=== PATIENT | male | born 1960 | race Caucasian/White ===

== ENCOUNTER → 2024-01-07 06:22 | Day surgery (SDC) | payer MEDICARE, SELFPAY | LOC: GI 06:22 | PROVIDERS: ATTENDING PHYSICIAN Internal Medicine Gastroenterology | DX: Z12.11 Encounter for screening for malignant neoplasm of colon (principal); D12.0 Benign neoplasm of cecum; D12.2 Benign neoplasm of ascending colon; Z86.010 Personal history of colon polyps; K64.8 Other hemorrhoids | CPT/HCPCS: 45385; 45380; 88305 ==

== ENCOUNTER → 2024-01-31 07:03 | Outpatient (REF) | payer MEDICARE, OTHER, SELFPAY ==
[2024-01-31 07:54] LABS: % Basophils 0.5 % (0-2); % Eosinophils 4.1 % (0-6); % Immature Granulocytes 0.4 % (0-0.5); % Lymphocytes 21.9 % (20.5-51.1); % Monocytes 7.6 % (1.7-9.3); % Neutrophils 65.5 % (42.2-75.2); Absolute Eosinophils 0.2 10^3/uL (0-0.7); Absolute Lymphocytes 1.2 10^3/uL (1.2-3.4); Absolute Monocytes 0.4 10^3/uL (0.1-0.6); Absolute Neutrophils 3.7 10^3/uL (1.4-6.5); Hematocrit 45.2 % (39.0-52.0); Hemoglobin 15.9 g/dL (13.0-18.0); Mean Corp Hgb Conc. 35.2 g/dL (33.0-37.0); Mean Corpuscular Hgb 32.9 pg (27.0-31.0); Mean Corpuscular Volume 93.4 fL (80.0-94.0); Mean Platelet Volume 10.6 fL (7.4-10.4); Nucleated Red Blood Cells % 0 % (-); Platelet Count 250 10^3/uL (130-400); Red Blood Cell Count 4.84 10^6/uL (4.70-6.10); Red Cell Dist. Width 11.9 % (11.5-14.5); White Blood Cell Count 5.7 10^3/uL (4.8-10.8)
[2024-01-31 08:29] LABS: ALT (SGPT) 35 U/L (0-50); AST (SGOT) 26 U/L (17-59); Albumin 4.5 g/dl (3.5-5.0); Alkaline Phosphatase 79 U/L (38-126); Blood Urea Nitrogen 20 mg/dl (9-20); Carbon Dioxide 27 mmol/L (22-30); Chloride 102 mmol/L (98-107); Glucose 104 mg/dl (70-99); HDL Cholesterol 81 mg/dl; LDL Cholesterol, Calculated 107 mg/dl; Potassium 4.4 mmol/L (3.5-5.1); Sodium 137 mmol/L (135-145); Total Bilirubin 0.6 mg/dl (0.2-1.3); Total Cholesterol 228 mg/dl (50-199); Triglyceride 200 mg/dl (10-149); Very Low Density Lipoprotein 40 mg/dl (0-30); eGFR > 60.00
[2024-01-31 09:03] LABS: PSA, Total - Screen 1.25 ng/ml (0.0-4.0); TSH Reflex To Free T4 1.68 uIU/ml (0.47-4.68)
== END ==
LOC: REG 07:03
PROVIDERS: ATTENDING PHYSICIAN Registered Nurse
DX: Z12.5 Encounter for screening for malignant neoplasm of prostate (principal); I10 Essential (primary) hypertension; K21.00 Gastro-esophageal reflux disease with esophagitis, without bleeding
CPT/HCPCS: 36415; 80053; 80061; 84443; 85025; G0103

== ENCOUNTER → 2024-07-29 07:08 | Outpatient (REF) | payer MEDICARE, OTHER, SELFPAY ==
[2024-07-29 09:00] LABS: ALT (SGPT) 39 U/L (0-50); AST (SGOT) 29 U/L (17-59); Albumin 4.5 g/dl (3.5-5.0); Alkaline Phosphatase 71 U/L (38-126); Blood Urea Nitrogen 20 mg/dl (9-20); Calcium 9.4 mg/dl (8.4-10.2); Carbon Dioxide 30 mmol/L (22-30); Chloride 102 mmol/L (98-107); Glucose 103 mg/dl (70-99); HDL Cholesterol 81 mg/dl; LDL Cholesterol, Calculated 138 mg/dl; Potassium 4.8 mmol/L (3.5-5.1); Sodium 143 mmol/L (135-145); Total Bilirubin 0.5 mg/dl (0.2-1.3); Total Cholesterol 242 mg/dl (50-199); Total Protein 6.9 g/dl (6.3-8.2); Triglyceride 119 mg/dl (10-149); Very Low Density Lipoprotein 23 mg/dl (0-30); eGFR > 60.00
[2024-07-29 13:39] LABS: Glycohemoglobin (HgbA1c) 5.8 % (4.0-5.6)
[2024-07-31 15:40] LABS: HIV Combo Negative (Negative)
[2024-07-31 19:17] LABS: Hepatitis B Surface Antibody Negative; Hepatitis C Antibody Negative (Negative)
== END ==
LOC: REG 07:08
PROVIDERS: ATTENDING PHYSICIAN Registered Nurse
DX: E78.2 Mixed hyperlipidemia (principal); R73.01 Impaired fasting glucose; Z11.59 Encounter for screening for other viral diseases
CPT/HCPCS: 36415; 80053; 80061; 83036; 86705; 86706; 86803; 87389

== ENCOUNTER → 2024-10-11 10:46 | Outpatient (REF) | payer MEDICARE, OTHER, SELFPAY ==
[2024-10-11 11:28] LABS: % Basophils 0.5 % (0-2); % Eosinophils 2.1 % (0-6); % Immature Granulocytes 0.4 % (0-0.5); % Lymphocytes 19.7 % (20.5-51.1); % Monocytes 7.7 % (1.7-9.3); % Neutrophils 69.6 % (42.2-75.2); Absolute Eosinophils 0.2 10^3/uL (0-0.7); Absolute Lymphocytes 1.6 10^3/uL (1.2-3.4); Absolute Monocytes 0.6 10^3/uL (0.1-0.6); Absolute Neutrophils 5.7 10^3/uL (1.4-6.5); Hematocrit 48.9 % (39.0-52.0); Hemoglobin 16.7 g/dL (13.0-18.0); Mean Corp Hgb Conc. 34.2 g/dL (33.0-37.0); Mean Corpuscular Hgb 32.9 pg (27.0-31.0); Mean Corpuscular Volume 96.3 fL (80.0-94.0); Mean Platelet Volume 10.7 fL (7.4-10.4); Nucleated Red Blood Cells % 0 % (-); Platelet Count 299 10^3/uL (130-400); Red Blood Cell Count 5.08 10^6/uL (4.70-6.10); White Blood Cell Count 8.2 10^3/uL (4.8-10.8)
[2024-10-11 13:20] LABS: ALT (SGPT) 31 U/L (0-50); AST (SGOT) 28 U/L (17-59); Albumin 4.5 g/dl (3.5-5.0); Alkaline Phosphatase 86 U/L (38-126); Blood Urea Nitrogen 19 mg/dl (9-20); Calcium 9.5 mg/dl (8.4-10.2); Carbon Dioxide 28 mmol/L (22-30); Chloride 100 mmol/L (98-107); Glucose 88 mg/dl (70-99); Potassium 4.9 mmol/L (3.5-5.1); Sodium 137 mmol/L (135-145); Total Bilirubin 0.6 mg/dl (0.2-1.3); eGFR > 60.00
== END ==
LOC: REG 10:46
PROVIDERS: ATTENDING PHYSICIAN Nurse Practitioner Adult Health
DX: R10.31 Right lower quadrant pain (principal)
CPT/HCPCS: 36415; 80053; 85025

== ENCOUNTER → 2024-10-12 09:30 | Outpatient (REF) | payer MEDICARE, OTHER, SELFPAY | LOC: RAD 09:30 | PROVIDERS: ATTENDING PHYSICIAN Nurse Practitioner Adult Health | DX: R10.31 Right lower quadrant pain (principal) | CPT/HCPCS: 74177; Q9967 ==

== ENCOUNTER 2024-10-12 15:41 | Day surgery (SDC) | payer MEDICARE, OTHER, SELFPAY ==
[2024-10-12] VITALS (8 sets, daily range): BP systolic 108–141; BP diastolic 56–85
--- NOTE | 2024-10-12 12:21 | ED.GENMED ---
History of Present Illness
General
Chief Complaint: Abdominal Pain
Source: patient
Exam Limitations: none
Time Seen by Provider: 10/12/24 12:14
History of Present Illness
History of Present Illness:
63yoM with a history of hypertension and hyperlipidemia presenting for evaluation of an abnormal outpatient CT scan. Patient started having some vague central abdominal pain 3 days ago which migrated to the right lower quadrant 2 days ago. He was
seen by his PCP yesterday who sent him for an outpatient CAT scan. He completed the CT scan this morning which revealed acute appendicitis and he was sent to the ED. patient's pain is currently a 4/10 in severity. He denies any fevers, chills,
nausea, vomiting, diarrhea, constipation, dysuria.
Past History
Past History
ED Past Medical History: HTN and Hypercholesterolemia
Social History
Tobacco: Non-smoker
Personal:
Living: with family
Employment: Employed
Phy Exam
General Physical Exam
General Presentation: well appearing and no apparent distress
General age: appears stated age
General Skin: warm and dry
General Habitus: normal
General Mental: alert
ENT Exam
ENT Exam: normocephalic
Pulmonary Exam
Pulmonary Exam: no respiratory distress
Gastrointestinal Exam
Gastrointestinal Exam: soft, non distended and other (+Focal tenderness to the RLQ. Abdomen soft, non-distended. No rebound or guarding. )
Neurological Exam
Neurological Exam: alert
Miah Coma Scale
Eye Opening: Spontaneous
Verbal Response: Oriented
Motor Response: Obeys Commands
GCS Total Score: 15
Skin Exam
Skin Exam: normal color and warm/dry
Psychiatric Exam
Psychiatric Exam: normal mood/affect
Course
Orders/Labs/Results
Orders:
Orders
10/12/24 12:14
0.9% Sodium Chloride 1000 ml [Nss] 1,000 ml IV BOLUS
10/12/24 13:25
Complete Blood Count/With Diff Urgent
Comprehensive Metabolic Panel Urgent
Abnormal Lab Results
10/12/24
13:25
MCH 32.7 H pg
(27.0-31.0)
Lymphocytes % 20.0 L %
(20.5-51.1)
Chloride 97 L mmol/L
(98-107)
Albumin 5.1 H g/dl
(3.5-5.0)
10/12/24 13:25
10/12/24 13:25
Vital Signs
Initial and Last Documented VS:
Initial Vital Signs
Temp Pulse Resp BP Pulse Ox
98.8 F 79 17 141/80 99
10/12/24 11:40 10/12/24 11:40 10/12/24 11:40 10/12/24 11:40 10/12/24 11:40
Last Documented Vital Signs
Temp Pulse Resp BP Pulse Ox
98.8 F 79 17 141/80 99
10/12/24 11:40 10/12/24 11:40 10/12/24 11:40 10/12/24 11:40 10/12/24 11:40
MDM/Problems Addressed
Differential Diagnosis Includes:
63yoM presenting after appendicitis was found on an outpatient CT scan this morning. C/o RLQ pain x several days. No f/c. VSS. He is well-appearing in no acute distress. No signs of peritonitis on abdominal exam.
Will establish IV access and obtain labs. General surgeon, Dr. Padilla, notified of patient. Patient admitted for further management. Plan for appendectomy this afternoon.
*Critical Care Note
Total Time (30-74mins, 75-104mins- exclusive of procedures): Not Applicable
ED Attending Note
-
Portions of this chart may have been created with voice recognition software.� Occasional wrong word or��sound alike� substitutions may have occurred due to the inherent limitations of voice recognition software.
Discharge Plan
Departure
Patient Disposition: Admit
Date of Disposition: 10/12/24
Time of Disposition: 12:39
Presentation/result/management discussed w/ accepting MD/DO: Dr. Padilla
Discharge Problem:
Acute appendicitis
Interventions
Interventions:
*Risk Screen - Suicide Last Done: 10/12/24 11:42
*General Assessment Last Done: 10/12/24 11:42
*Neglect/Abuse Screening Last Done: 10/12/24 11:42
*ED COVID-19 Vaccine History Last Done: 10/12/24 11:42
*Nursing Disposition Last Done: 10/12/24 15:37
MW-Icnbme-Acsnmyjjnl Assessment Last Done: 10/12/24 14:03
Discharge Date and Time
Discharge Date/Time: 10/12/24 15:37
[2024-10-12] MEDS: NSS 1000 IV (13:32)
[2024-10-12 13:38] LABS: % Basophils 0.5 % (0-2); % Eosinophils 2.2 % (0-6); % Immature Granulocytes 0.2 % (0-0.5); % Monocytes 6.6 % (1.7-9.3); % Neutrophils 70.5 % (42.2-75.2); Absolute Eosinophils 0.2 10^3/uL (0-0.7); Absolute Lymphocytes 1.6 10^3/uL (1.2-3.4); Absolute Monocytes 0.5 10^3/uL (0.1-0.6); Absolute Neutrophils 5.8 10^3/uL (1.4-6.5); Hematocrit 48.3 % (39.0-52.0); Hemoglobin 16.8 g/dL (13.0-18.0); Mean Corp Hgb Conc. 34.8 g/dL (33.0-37.0); Mean Corpuscular Hgb 32.7 pg (27.0-31.0); Mean Platelet Volume 10.3 fL (7.4-10.4); Nucleated Red Blood Cells % 0 % (-); Platelet Count 285 10^3/uL (130-400); Red Blood Cell Count 5.14 10^6/uL (4.70-6.10); Red Cell Dist. Width 11.8 % (11.5-14.5); White Blood Cell Count 8.2 10^3/uL (4.8-10.8)
[2024-10-12 14:03] LABS: ALT (SGPT) 39 U/L (0-50); AST (SGOT) 36 U/L (17-59); Albumin 5.1 g/dl (3.5-5.0); Alkaline Phosphatase 89 U/L (38-126); Blood Urea Nitrogen 16 mg/dl (9-20); Calcium 9.8 mg/dl (8.4-10.2); Carbon Dioxide 29 mmol/L (22-30); Chloride 97 mmol/L (98-107); Glucose 84 mg/dl (70-99); Potassium 4.6 mmol/L (3.5-5.1); Sodium 137 mmol/L (135-145); Total Bilirubin 0.9 mg/dl (0.2-1.3); Total Protein 7.5 g/dl (6.3-8.2); eGFR > 60.00
--- NOTE | 2024-10-12 16:09 | HP.FOC2 ---
Focused History & Physical
Chief Complaint
HPI:
Chief Complaint: Right lower quadrant abdominal pain
HPI / Indication for Planned Procedure: 63-year-old male who developed the acute onset of abdominal pain this past Wednesday. Periumbilical in nature. Anorexia mild nausea but no vomiting. This pain increased in severity on Wednesday and began
localizing to the right lower quadrant for which he called his PCP. He was seen in evaluation yesterday and referred for an outpatient CT scan that was obtained today. Over the last 24 hours his appetite has returned and he was eating regularly by
yesterday evening for dinner. The severity of his pain significantly improved but he is dry house tender to the touch and with movement localized to the right lower quadrant. No similar episodes like this in the past.
Relevant Past Medical History: Other (Allergies, hypercholesterolemia, hypertension)
Relevant Social History: Negative
Relevant Family History: Negative
Relevant Past Surgical History: Negative (No past abdominal surgical history)
Review of Systems
Review of Pertinent Systems: All Systems Negative
Medication
See Medication form for detailed medications: Yes
Medication List (including Herbals & OTC):
montelukast 10 mg tablet 10 mg PO DAILY 05/31/19
rosuvastatin 40 mg tablet 40 mg PO DAILY 05/31/19
omeprazole 20 mg capsule,delayed release 20 mg PO DAILYPRN PRN heart burn 09/18/19
amlodipine 10 mg-benazepril 20 mg capsule 1 cap PO DAILY 10/12/24
fexofenadine 180 mg tablet 180 mg PO DAILY 10/12/24
ibuprofen 200 mg tablet (Advil) 400 mg PO DAILYPRN PRN mild pain 10/12/24
mometasone 50 mcg/actuation nasal spray 2 spray intranasal DAILY PRN allergies 10/12/24
therapeutic multivitamin 1 tab PO DAILY 10/12/24
Medications Reviewed: Yes
Allergies and Reactions
Patient has Allergies: No
Noted Allergies and Reactions:
Allergy/AdvReac Type Severity Reaction Status Date / Time
NKA - No Known Allergies Allergy NKDA Uncoded 10/12/24 11:40
Pertinent Physical Exam
All Other Systems: Negative
Head/Neck: Normal
Lungs: Normal
Heart: Normal
Abdomen: Other (Soft, nondistended, tenderness palpation localizing to the right lower quadrant. Some guarding on deep palpation.)
Extremities: Normal
Neurological: Normal
Diagnosis / Assessment
Assessment: 63-year-old male with probable acute appendicitis although clinically improving.
CT imaging personally reviewed. Thickening of the proximal appendix and adjacent cecum but not severe. Some inflammatory changes. Distal appendix unremarkable. Patient with recent colonoscopy 12/2023 which was unremarkable except for small polyps.
Reviewed with patient and his at bedside CT imaging findings and clinical history consistent with acute appendicitis. We discussed operative as well as nonoperative treatment options and the associated risks and benefits of either approach.
After our discussions the patient's preference is to proceed with appendectomy for definitive management. Laparoscopic appendectomy was reviewed in detail including the operative technique, alternative treatment options benefits and potential risks
of the operative procedure. We discussed the typical postoperative recovery pending operative findings.
Plan / Procedure
Patient on schedule for laparoscopic appendectomy
Antibiotics on-call to the OR
Anesthesia/Sedation to be done by Anesthesia Provider: Yes
--- NOTE | 2024-10-12 16:28 | W.SUR.PREOP ---
Pre-Operative Surgical Note
-
I have examined this patient prior to the performance of the scheduled procedure.
The patient's condition is unchanged from the time of the current History and
Physical and the patient is able to undergo the scheduled procedure.
--- NOTE | 2024-10-12 18:07 | W.IMMPOSTOP ---
Addendum entered and electronically signed by Rohit Padilla MD 10/12/24 19:01:
#[id number]
Original Note:
Surgical Immed Post Op Note
-
Primary Surgeon: Rohit Padilla
Assisting Surgeon: Suzie Pedro
Pre-op Diagnosis: Acute appendicitis
Post-op Diagnosis: Acute appendicitis
Procedure Performed: Laparoscopic appendectomy
Anesthesia Type: GETA +0.25% Marcaine
Specimen / Cultures: Appendix/none
Estimated Blood Loss: 8 mL
Complications: None immediate
Operative Findings: Mid and proximal appendix/base of cecum with induration and acute inflammatory changes. Terminal ileum/ileocecal valve and remaining cecum unremarkable. Appendectomy completed with partial cecectomy but preservation of
ileocecal valve.
Plan: Stable for discharge home postoperatively of pain control, no nausea or vomiting and vital signs stable.
== END 2024-10-12 19:12 | disposition home or self-care (01) ==
LOC: SDS 15:41
PROVIDERS: Physician Assistant; ATTENDING PHYSICIAN Surgery; EMERGENCY PHYSICIAN Student in an Organized Health Care Education/Training Program; FAMILY PHYSICIAN Registered Nurse
DX: K35.80 Unspecified acute appendicitis (principal)
CPT/HCPCS: 44970; 88307; 80053; 85025; 99285

== ENCOUNTER → 2025-03-15 13:03 | Outpatient (REF) | payer MEDICARE, OTHER, SELFPAY | LOC: RAD 13:03 | PROVIDERS: ATTENDING PHYSICIAN Surgery; FAMILY PHYSICIAN Registered Nurse | DX: K82.4 Cholesterolosis of gallbladder (principal); Z13.6 Encounter for screening for cardiovascular disorders | CPT/HCPCS: 76700; 76770 ==

== ENCOUNTER → 2025-03-24 07:47 | Outpatient (REF) | payer MEDICARE, OTHER, SELFPAY ==
[2025-03-24 09:58] LABS: ALT (SGPT) 36 U/L (0-50); Albumin 4.5 g/dl (3.5-5.0); Alkaline Phosphatase 64 U/L (38-126); Calcium 9.2 mg/dl (8.4-10.2); Carbon Dioxide 29 mmol/L (22-30); Chloride 104 mmol/L (98-107); HDL Cholesterol 74 mg/dl; LDL Cholesterol, Calculated 127 mg/dl; Potassium 4.6 mmol/L (3.5-5.1); Sodium 137 mmol/L (135-145); Total Protein 6.8 g/dl (6.3-8.2); Very Low Density Lipoprotein 16 mg/dl (0-30); eGFR > 60.00
[2025-03-24 10:08] LABS: AST (SGOT) 25 U/L (17-59); Blood Urea Nitrogen 17 mg/dl (9-20); Glucose 100 mg/dl (70-99)
[2025-03-24 10:21] LABS: PSA, Total - Screen 2.44 ng/ml (0.0-4.0)
[2025-03-24 10:55] LABS: Glycohemoglobin (HgbA1c) 5.7 % (4.0-5.6)
[2025-03-24 12:46] LABS: Hematocrit 46.3 % (39.0-52.0); Hemoglobin 15.8 g/dL (13.0-18.0); Mean Corp Hgb Conc. 34.1 g/dL (33.0-37.0); Mean Corpuscular Volume 95.3 fL (80.0-94.0); Nucleated Red Blood Cells % 0 % (-); Platelet Count 262 10^3/uL (130-400); Red Cell Dist. Width 11.9 % (11.5-14.5)
== END ==
LOC: REG 07:47
PROVIDERS: ATTENDING PHYSICIAN Registered Nurse
DX: E78.2 Mixed hyperlipidemia (principal); R73.01 Impaired fasting glucose; Z12.5 Encounter for screening for malignant neoplasm of prostate; I10 Essential (primary) hypertension
CPT/HCPCS: 36415; 80053; 80061; 83036; 84443; 85025; G0103